=== PATIENT | male | born 1950 | race Caucasian/White ===

== ENCOUNTER 2023-12-15 11:41 | Outpatient (REF) | payer MEDICARE, BC, SELFPAY ==
--- NOTE | ~2023-12-15 | XR_ITS ---
EXAMINATION: XR KNEE, LEFT CLINICAL INFORMATION: Pain in the left knee. COMPARISON: None available. TECHNIQUE: Three views of the left knee. FINDINGS: Moderate joint effusion. Mild narrowing of the medial compartment. Mild medial and lateral chondrocalcinosis. Tiny tricompartmental osteophytes. Small calcification in the soft tissues medial to the medial femoral compartment. XR/XR knee LT 3V IMPRESSION: Moderate joint effusion. Mild degenerative changes.
== END 2023-12-15 11:42 | disposition home or self-care (01) ==
LOC: HO.HOSX 11:41
PROVIDERS: PCP Internal Medicine; Visit Provider Orthopaedic Surgery
DX: M25.462 Effusion, left knee (principal); M23.8X2 Other internal derangements of left knee
CPT/HCPCS: 73562; 99212

== ENCOUNTER 2023-12-15 11:41 | Outpatient (AMB) | payer MEDICARE, SELFPAY ==
--- NOTE | 2023-12-15 12:06 | MHC.OFFVIS ---
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 The patient did undergo left knee arthroscopic surgery approximately 2 years ago. He got fairly good relief from that surgery initially. The patient states that aggravated his knee last month while walking a lot at [employer] in [place], [place]. The patient has had cortisone injections in the past which gave him minimal relief. He has also tried Tylenol and ibuprofen which gave him only mild relief. He would like to hold off on further surgery if at all possible. He has done physical therapy exercises which aggravated his pain. Allergies No Known Allergies Allergy (Verified 12/15/23 12:15) Medication List - Last Reconciled 12/15/23 by Alonso Demarco MD lisinopril-hydrochlorothiazide 10-12.5 mg 1 tab PO DAILY metformin 1,000 mg PO BID PFSH Surgical History (Updated 12/15/23 @ 12:16 by Shea Cleaning CMA) History of back surgery Hx of left knee surgery Social History (Updated 12/15/23 @ 12:17 by Shea Cleaning CMA) Patient Tobacco Use Status: Never used Tobacco Current occupational status: retired Current occupation: Right hand dominant Physical Exam Const Other: Well-nourished well-developed very friendly male awake alert and oriented x3 in no acute distress Extrem Other: Bilateral lower extremity examination shows good capillary refill, no skin lesions noted, normal sensation light touch Left knee examination shows a minimal effusion, mild crepitus with range of motion, pain with range of motion, no instability Results Reviewed Results Reviewed: Standing full weight-bearing X-rays of the patient's left knee show mild joint space narrowing, no acute bony abnormalities Assessment & Plan Assessment & Plan (1) Left knee pain: Code(s): M25.562 - Pain in left knee Category: Medical Plan Mr. Fine presents with left knee pain due to degenerative joint disease. I had a lengthy discussion with the patient regarding the treatment options. He wishes to hold off on surgery for as long as possible. I agree with this plan. The patient has not gotten good relief from cortisone injections in the past. Thus, I will see whether or not the patient's insurance company will cover a viscosupplementation injection. I will see the patient back once the injection is available. Feel free to call me at any time should questions regarding his orthopedic management arise. I spent 21 minutes in reviewing the patient's records and imaging studies, seeing the patient and documenting in the medical record. Orders: Orders XR knee LT 3V Today M25.562 - Pain in left knee Coding Level of Care Code Est Pt Level 3 (71104) Diagnoses Left knee pain M25.562
== END 2023-12-15 12:29 | disposition home or self-care (01) ==
PROVIDERS: PCP Internal Medicine; Visit Provider Orthopaedic Surgery
DX: M25.562 Pain in left knee (principal)
CPT/HCPCS: 99213

== ENCOUNTER 2023-12-25 08:25 | Outpatient (AMB) | payer MEDICARE, SELFPAY ==
--- NOTE | 2023-12-25 08:30 | MHC.OFFVIS ---
Intake Visit Reasons: INJ- Left knee Durolane gel injection Intake Note: Karlos is a 73 year old male who presents for his Left knee Durolane gel injection. The patient describes his left knee pain as sharp in nature. He has tried Tylenol and ibuprofen which gave him only mild relief. He has had cortisone injections in the past which gave him no relief. He wishes to hold off on surgery for as long as possible. Allergies No Known Allergies Allergy (Verified 12/25/23 08:36) Medication List - Last Reconciled 12/25/23 by Alonso Demarco MD lisinopril-hydrochlorothiazide 10-12.5 mg 1 tab PO DAILY metformin 1,000 mg PO BID PFS Surgical History History of back surgery Hx of left knee surgery Social History Patient Tobacco Use Status: Never used Tobacco Current occupational status: retired Current occupation: Right hand dominant Physical Exam Const Other: Well-nourished well-developed very friendly male awake alert and oriented x3 in no acute distress Extrem Other: Bilateral lower extremity examination shows good capillary refill, no skin lesions noted, normal sensation light touch Left knee examination shows a minimal effusion, palpable crepitus with range of motion, pain with range of motion, no instability Results Reviewed Results Reviewed: X-rays of the patient's left knee show joint space narrowing, subchondral sclerosis, no acute Assessment & Plan Assessment & Plan (1) Arthritis of left knee: Code(s): M17.12 - Unilateral primary osteoarthritis, left knee Category: Medical Plan Mr. Fine presents with left knee pain due to degenerative joint disease. I had a lengthy discussion with the patient regarding the treatment options. He wishes to hold off on surgery for as long as possible. I agree with this plan. The risks and benefits of a left knee Durolane viscosupplementation injection were discussed at length with the patient. The patient wished to proceed. He tolerated the injection well. He will continue with his home exercise program. He will follow up with me on as-needed basis should his symptoms not plateau at an unacceptable level over the next few months. Feel free to call me at any time should questions regarding his orthopedic management arise. I spent 21 minutes in reviewing the patient's records and imaging studies, seeing the patient and documenting in the medical record. Orders: Orders AMB Joint Injection/Aspiration Today M17.12 - Unilateral primary osteoarthritis, left knee Coding Level of Care Code Est Pt Level 3 (37841) Diagnoses Arthritis of left knee M17.12
== END 2023-12-25 08:45 | disposition home or self-care (01) ==
PROVIDERS: PCP Internal Medicine; Visit Provider Orthopaedic Surgery
DX: M17.12 Unilateral primary osteoarthritis, left knee (principal)
CPT/HCPCS: 20610; 99213

== ENCOUNTER → 2023-12-25 08:25 | Outpatient (BNVA) | payer MEDICARE, SELFPAY | PROVIDERS: PCP Internal Medicine; Visit Provider Orthopaedic Surgery | DX: M17.12 Unilateral primary osteoarthritis, left knee (principal) | CPT/HCPCS: 99212 ==

== ENCOUNTER 2024-03-25 08:35 | Outpatient (AMB) | payer MEDICARE, SELFPAY ==
--- NOTE | 2024-03-25 08:37 | MHC.OFFVIS ---
Vital Signs 03/25/24 08:44 Height 5 ft 9 in Weight 170 lb BMI 25.1 Intake Visit Reasons: Left knee pain Intake Note: Karlos is a 73 year old male who presents with complaints of left knee pain. The patient did have a Durolane viscosupplementation injection given to his left knee earlier this year. He got fairly good relief from that injection. He has had cortisone injections in the past which gave him minimal relief. He would like to hold off on total knee replacement surgery for as long as possible. His pain has gotten somewhat worse recently. He has done physical therapy exercises which aggravated his pain. He has tried Tylenol and anti-inflammatory medicines which gave minimal relief. Allergies No Known Allergies Allergy (Verified 03/25/24 08:46) Medication List - Last Reconciled 03/25/24 by Alonso Demarco MD lisinopril-hydrochlorothiazide 10-12.5 mg 1 tab PO DAILY metformin 1,000 mg PO BID PFSH Surgical History History of back surgery Hx of left knee surgery Social History Patient Tobacco Use Status: Never used Tobacco Current occupational status: retired Current occupation: Right hand dominant Physical Exam Vital Signs: BMI result Body Mass Index 25.1 Const Other: Well-nourished well-developed very friendly male awake alert and oriented x3 in no acute distress Extrem Other: Bilateral lower extremity examination shows good capillary refill, no skin lesions noted, normal sensation light touch Left knee examination shows a minimal effusion, palpable crepitus with range of motion, pain with range of motion, no instability Results Reviewed Results Reviewed: X-rays of the patient's left knee taken previously show joint space narrowing, subchondral sclerosis, no acute bony abnormalities Assessment & Plan Assessment & Plan (1) Left knee pain: Code(s): M25.562 - Pain in left knee Category: Medical (2) Osteoarthritis of left knee: Code(s): M17.12 - Unilateral primary osteoarthritis, left knee Category: Medical Plan Mr. Fine presents with left knee pain due to osteoarthritis. I had a lengthy discussion with the patient regarding the treatment options. He wishes to hold off on surgery for as long as possible. I agree with this plan. He has not gotten good relief from cortisone injections in the past. He has gotten good relief from Durolane viscosupplementation injections. Thus, I will see whether or not the patient's insurance company will cover a another Durolane viscosupplementation injection. I will see him back once the injection is available. Feel free to call me at any time should questions regarding his orthopedic management arise. I spent 21 minutes in reviewing the patient's records and imaging studies, seeing the patient and documenting in the medical record. Coding Level of Care Code Est Pt Level 3 (53126) Diagnoses Left knee pain M25.562 Osteoarthritis of left knee M17.12
[2024-03-25 08:44] VITALS: BMI 25.1
== END 2024-03-25 09:08 | disposition home or self-care (01) ==
PROVIDERS: PCP Internal Medicine; Visit Provider Orthopaedic Surgery
DX: M25.562 Pain in left knee (principal); M17.12 Unilateral primary osteoarthritis, left knee
CPT/HCPCS: 99213

== ENCOUNTER → 2024-03-25 08:35 | Outpatient (BNVA) | payer MEDICARE, SELFPAY | PROVIDERS: PCP Internal Medicine; Visit Provider Orthopaedic Surgery | DX: M17.12 Unilateral primary osteoarthritis, left knee (principal) | CPT/HCPCS: 99212 ==

== ENCOUNTER 2024-06-29 08:23 | Outpatient (AMB) | payer MEDICARE, SELFPAY ==
--- NOTE | 2024-06-29 08:29 | MHC.OFFVIS ---
Intake Visit Reasons: Left Knee Durolane Injection Intake Note: Karlos is a 73 year old male who presents with complaints of progressively worsening left knee pain. The patient describes his pain as sharp in nature. He has had cortisone injections in the past which gave him minimal relief. Has also had viscosupplementation injections which gave him fairly good relief. He wishes to hold off on surgery if at all possible. Allergies No Known Allergies Allergy (Verified 06/29/24 08:33) Medication List - Last Reconciled 06/29/24 by Alonso Demarco MD lisinopril-hydrochlorothiazide 10-12.5 mg 1 tab PO DAILY metformin 1,000 mg PO BID PFSH Surgical History History of back surgery Hx of left knee surgery Social History Patient Tobacco Use Status: Never used Tobacco Current occupational status: retired Current occupation: Right hand dominant Physical Exam Const Other: Well-nourished well-developed very friendly male awake alert and oriented x3 in no acute distress Extrem Other: Bilateral lower extremity examination shows good capillary refill, no skin lesions noted, normal sensation light touch Left knee examination shows a minimal effusion, palpable crepitus with range of motion, pain with range of motion, no instability Office Procedures AMB Joint Injection/Aspiration Joint Injection/Aspiration Primary Site: left knee Prep: site was prepped using aseptic technique Injected: 60 mg of (Durolane viscosupplementation) and 1% plain lidocaine Procedure: The patient tolerated the procedure well Coding 39165 - Large joint Procedure code (CPT) selection complete Results Reviewed Results Reviewed: X-rays of the patient's left knee taken previously show joint space narrowing, subchondral sclerosis, no acute bony abnormalities Assessment & Plan Assessment & Plan (1) Osteoarthritis of left knee: Code(s): M17.12 - Unilateral primary osteoarthritis, left knee Category: Medical Plan Mr. Fine presents with left knee pain due to osteoarthritis. I had a lengthy discussion with the patient regarding the treatment options. The risks and benefits of a Durolane viscosupplementation injection were discussed at length with the patient. The patient wished to proceed. He tolerated the injection well. He will continue with his home exercise program. He will contact me prior to his follow-up appointment in 3 months should any questions or concerns arise. Feel free to call me at any time should questions regarding his orthopedic management arise. I spent 22 minutes in reviewing the patient's records and imaging studies, seeing the patient and documenting in the medical record. Orders: Orders AMB Joint Injection/Aspiration 06/29/24 M17.12 - Unilateral primary osteoarthritis, left knee Coding Level of Care Code Est Pt Level 3 (87282) Complex EM visit Add On G2211 Diagnoses Osteoarthritis of left knee M17.12 CPT Codes Coding - 01659 Large joint: 07478 - Large joint ([id number])
== END 2024-06-29 08:56 | disposition home or self-care (01) ==
PROVIDERS: PCP Internal Medicine; Visit Provider Orthopaedic Surgery
DX: M17.12 Unilateral primary osteoarthritis, left knee (principal)
CPT/HCPCS: 20610; 99213

== ENCOUNTER → 2024-06-29 08:23 | Outpatient (BNVA) | payer MEDICARE, SELFPAY | PROVIDERS: PCP Internal Medicine; Visit Provider Orthopaedic Surgery | DX: M17.12 Unilateral primary osteoarthritis, left knee (principal) | CPT/HCPCS: 20610; 99212; J2003; J7318 ==

== ENCOUNTER 2024-09-30 08:32 | Outpatient (AMB) | payer MEDICARE, SELFPAY ==
[2024-09-30 08:37] VITALS: BMI 25.1
--- NOTE | 2024-09-30 08:37 | A.OFFVIS_ITS ---
Vital Signs 09/30/24 08:37 Height 5 ft 9 in Weight 170 lb BMI 25.1 Intake Visit Reasons: Left knee pain Intake Note: Karlos is a 73 year old male who presents with complaints of left knee pain. The patient describes his pain as sharp in nature. He has had cortisone injections in the past which gave him minimal relief. He has also had Durolane viscosupplementation injections which gave him good relief. He wishes to hold off on surgery for as long as possible. He has tried Tylenol and anti- inflammatory medicines which gave him minimal relief. He has also done physical therapy exercises which aggravated his pain. Allergies No Known Allergies Allergy (Verified 09/30/24 08:37) Medication List - Last Reconciled 09/30/24 by Alonso Demarco MD lisinopril-hydrochlorothiazide 10-12.5 mg 1 tab PO DAILY metformin 1,000 mg PO BID PFSH Surgical History History of back surgery Hx of left knee surgery Social History Patient Tobacco Use Status: Never used Tobacco Current occupational status: retired Current occupation: Right hand dominant Physical Exam Vital Signs: BMI result Body Mass Index 25.1 Const Other: Well-nourished well-developed very friendly male awake alert and oriented x3 in no acute distress Extrem Other: Bilateral lower extremity examination shows good capillary refill, no skin lesions noted, normal sensation light touch Left knee examination shows a minimal effusion, palpable crepitus with range of motion, pain with range of motion, no instability Results Reviewed Results Reviewed: X-rays of the patient's left knee show joint space narrowing, subchondral sclerosis, no acute bony abnormalities Assessment & Plan Assessment & Plan (1) Left knee pain: Code(s): M25.562 - Pain in left knee Category: Medical (2) Osteoarthritis of left knee: Code(s): M17.12 - Unilateral primary osteoarthritis, left knee Category: Medical Plan Mr. Fine presents with left knee pain due to osteoarthritis. I had a lengthy discussion with the patient regarding the treatment options. He wishes to hold off on surgery for as long as possible. I agree with this plan. I will see whether or not the patient's insurance company will cover another Durolane viscosupplementation injection. I will see him back once the injection is available. Feel free to call me at any time should questions regarding his orthopedic management arise. I spent 20 minutes in reviewing the patient's records and imaging studies, seeing the patient and documenting in the medical record. Coding Level of Care Code Est Pt Level 3 (56771) Complex EM visit Add On G2211 Diagnoses Left knee pain M25.562 Osteoarthritis of left knee M17.12
--- OUTSIDE RECORDS SUMMARY | 2024-09-30 08:59 | XMS_ITS | Clinical Summary ---
Author Organization [facility] Address [address] [place] [address] Care Team Providers Care Fitness And Wellness Manager Name Role Phone Sathish Perez MD Primary Care Provider Unavail able Allergies No known active allergies Medications Medication Sig Dispensed Refills Start Date End Date Status aspirin 81 MG EC tablet Take 81 mg by mouth. 0 Active Cholecalciferol 50 MCG (1999 UT) CAPS Take 2,000 Units by mouth. 0 Active docusate sodium (Colace) 100 MG capsule Take 100 mg by mouth. 0 09/26/2017 Active lisinopril (PRINIVIL,ZESTRIL) tablet 10 mg Take 10 mg by mouth. 0 02/26/2017 Active lisinopril-hydroCHLO ROthiazide (PRINZIDE,ZESTORETIC ) tablet 10-12.5 mg Take 1 tablet by mouth daily. 0 11/13/2021 Active LORazepam (ATIVAN) 0.5 MG tablet Take 0.5 mg by mouth 3 (three) times a day as needed. for anxiety 0 09/20/2021 Active LORazepam (ATIVAN) 1 MG tablet Take 1 mg by mouth every 6 (six) hours as needed. 0 Active naproxen (NAPROSYN) 500 MG tablet TAKE 1 TABLET BY MOUTH TWICE A DAY WITH FOOD 0 11/19/2021 Active methocarbamol (ROBAXIN) 750 MG tablet TAKE 1 TABLET BY ORAL ROUTE 2 TIMES EVERY DAY NEEDED 0 11/19/2021 Active metFORMIN (GLUCOPHAGE) tablet 500 mg Take 500 mg by mouth. 0 09/15/2019 Active oxyCODONE (ROXICODONE) 5 MG immediate release tablet 1-2 tabs p.o. every 4 to 6 hours as needed for pain. May fill for lesser quantity 16 tablet 0 12/11/2021 Active Active Problems Problem Noted Date Diagnosed Date Localized swelling of left lower extremity 01/23 Arthritis of knee, left 11/28/2021 Sprain of lateral collateral ligament of left kn ee 11/28/2021 Family History Medical History Relation Name Comments Heart disease Mother Relation Name Status Comments Mother Social History Tobacco Use Types Packs/Day Years Used Date Smoking Tobacco: Never Smokeless Tobacco: Never Alcohol Use Standard Drinks/Week Comments Not Currently 0 (1 standard drink = 0.6 oz pur e alcohol) Sex and Gender Information Value Date Recorded Sex Assigned at Not on file Gender Identity Not on file Sexual Orientation Not on file Job Start Date Occupation Industry Not on file Not on file Not on file Last Filed Vital Signs Vital Sign Reading Time Taken Comments Blood Pressure - - Pulse - - Temperature - - Respiratory Rate - - Oxygen Saturation - - Inhaled Oxygen Concentration - - Weight 79.4 kg (175 lb) 01/02/2022 2:34 PM EDT Height 175.3 cm (5' 9 ) 01/02/2022 2:34 PM EDT Body Mass Index 25.84 01/02/2022 2:34 PM EDT Plan of Treatment Health Maintenance Due Date Last Done Comments Hepatitis C Screening 1950 COVID-19 Vaccine (#1) 04/08/1951 Depression Screening 1963 Preventative Health Evaluation 10/06/1969 DTap / Tdap / Td (1 - Tdap) 10/06/1970 Colon Cancer Screening (Colonoscopy) 10/06/1996 Shingrix-Zoster Vaccine (1 of 2) 10/06/2001 Fall Risk Assessment 10/06/2016 Pneumococcal Vaccine (1 of 1 - PCV) 10/06/2016 Influenza Vaccine (#1) 2024 RSV Adult > 60+ Yrs or Pregn ant (1 - 1-dose 75+ series) 10/06/2026 Hepatitis B Vaccines Aged Out No long er eligible based on patient's age to complete this topic RSV Ped < 20 months Aged Out No longe r eligible based on patient's age to complete this topic Care Teams Fitness And Wellness Manager Relationship Specialty Start Date End Date Sathish Perez MD PCP - General Internal Medicine 11/26/21
--- OUTSIDE RECORDS SUMMARY | 2024-09-30 08:59 | XMS_ITS | Continuity of Care Document ---
Author Organization [facility] Address [address] [place] [address]- Care Team Providers Care Resin Coater Name Role Phone Sathish Perez MD Primary Care Physician [phone] [facility] [place] - 09[place]23/[place] [facility] Care [address] [place] [id number] Encounter Type: Triage Allergies, Adverse Reactions, Alerts No Known Allergies Medications Ativan 0.5 mg oral tablet 1 tablet = 0.5 mg, By Mouth, 3 times a day, PRN Anxiety, # 50 tablet, 0 Refills, Maintenance, 09/30/23 9:54:00 AM EST, Tablet, [id number], 174, cm, 09/30/23 8:58:00 EST, Height, 77.3, kg, 09/30/23 8:58:00 EST, Dry Weight Start Date: 09/30/23 Status: Ordered Quantity: 50.0 Unit: tablet Repeat number: 1 Colace sodium 100 mg oral capsule 100 mg, 1, capsule, By Mouth, 2 times a day, # 60 capsule, Refills 0, Tot. Refills 0, Maintenance, 09/26/17 9:24:53 AM EST, Print Requisition Start Date: 09/26/17 Status: Ordered Quantity: 60.0 Unit: capsule Repeat number: 1 lisinopril 10 mg oral tablet 10 mg, 1, tablet, By Mouth, Daily, # 30 tablet, Refills 0, Maintenance, 02/26/17 9:47:54 AM EDT Start Date: 02/26/17 Status: Ordered Quantity: 30.0 Unit: tablet Repeat number: 1 metFORMIN 500 mg oral tablet 1 tablet = 500 mg, By Mouth, 2 times a day, 0 Refills, Maintenance, 09/15/19 8:52:00 AM EST Start Date: 09/15/19 Status: Ordered Repeat number: 1 Vitamin B12 1000 mcg oral tablet 1 tablet = 1,000 mcg, By Mouth, Daily, # 90 tablet, 0 Refills, Maintenance, 08/24/24 10:19:00 AM EST, Tablet, Partial fill upon patient request if the prescription is for a schedule II opioid drug. 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 1Bilateral Social History Social History Type Response Smoking Status Never smoker entered on: 01/24/15 Sex Sex Representation Male (finding) Patient Care team information Care Team Personnel Name: Sathish Perez MD Position: [facility] Physician - Primary Care Member Role: PCP Address: [address] [place] [address] Telecom: Name: Charlene Kohli RN Position: S RN Member Role: Primary Care Nurse Name: Rosetta Ventura MA Position: [facility] Onco RN Member Role: Primary Care Nurse Care Team Related Persons Name: ARVIN VARMA Insurance Providers Guarantor name: BERNY VARMA Health Plan Information #: 1 Payer: MEDICARE PART B OUTPT Member Number: NA Policy Number: NA Group Number: NA Health Plan Information #: 2 Payer: MEDEX Member Number: NA Policy Number: NA Group Number: NA
--- OUTSIDE RECORDS SUMMARY | 2024-09-30 08:59 | XMS_ITS | Continuity of Care Document ---
Author Organization [facility] Address [address] [place] [address]- Care Team Providers Care Space Physicist Name Role Phone Sathish Perez MD Primary Care Physician [place] [facility] [place] [facility] Care [address], [place] [address] Attending Physician: Isael Gonzales Admitting Physician: Isael Gonzales Referring Physician: Admtr [id number] Encounter Type: Triage Allergies, Adverse Reactions, Alerts [...] on: 01/24/15 Sex Sex Representation Male (finding) Radiology * Event Display: Non Radiology Results Authored Date: Patient Care team information Care Team Personnel Name: Sathish Perez MD Position: [facility] Physician - Primary Care Member Role: PCP Address: [address] [place] [address] Telecom: Name: Charlene Kohli RN Position: [facility] RN Member Role: Primary Care Nurse Name: Rosetta Ventura MA Position: [facility] Onco RN Member Role: Primary Care Nurse Care Team Related Persons Name: ARVIN VARMA Insurance Providers Guarantor name: BERNY VARMA Health Plan Information #: 1 Payer: MEDICARE PART B OUTPT Member Number: NA Policy Number: NA Group Number: NA Health Plan Information #: 2 Payer: MEDEX Member Number: NA Policy Number: NA Group Number: NA
== END 2024-09-30 09:05 | disposition home or self-care (01) ==
PROVIDERS: PCP Internal Medicine; Visit Provider Orthopaedic Surgery
DX: M17.12 Unilateral primary osteoarthritis, left knee (principal)
CPT/HCPCS: 99213; G2211

== ENCOUNTER → 2024-09-30 08:32 | Outpatient (BNVA) | payer MEDICARE, SELFPAY | PROVIDERS: PCP Internal Medicine; Visit Provider Orthopaedic Surgery | DX: M25.562 Pain in left knee (principal); M17.12 Unilateral primary osteoarthritis, left knee | CPT/HCPCS: 99212 ==

== ENCOUNTER 2025-03-01 09:25 | Outpatient (AMB) | payer MEDICARE, SELFPAY ==
--- NOTE | 2025-03-01 09:40 | A.OFFVIS_ITS ---
Intake Visit Reasons: Inj-Lt knee Durolane Intake Note: Karlos is a 74 year old male who presents today for a left knee Durolane gel injection. At today's visit he stated that the last injection did give some relief, no numbness or tingling to report. Patient added that mild discomfort when waking up but the pain subsides. He continues to walk for exercise. He denies any locking or giving way. He wishes to hold off on surgery if at all possible. Allergies No Known Allergies Allergy (Verified 03/01/25 09:42) Medication List - Last Reconciled 03/01/25 by Alonso Demarco MD lisinopril-hydrochlorothiazide 10-12.5 mg 1 tab PO DAILY metformin 1,000 mg PO BID PFSH Surgical History History of back surgery Hx of left knee surgery Social History Patient Tobacco Use Status: Never used Tobacco Current occupational status: retired Current occupation: Right hand dominant Physical Exam Const Other: Well-nourished well-developed very friendly male awake alert and oriented x3 in no acute distress Extrem Other: Bilateral lower extremity examination shows good capillary refill, no skin lesions noted, normal sensation light touch Left knee examination shows a minimal effusion, palpable crepitus with range of motion, pain with range of motion, no instability Office Procedures AMB Joint Injection/Aspiration Joint Injection/Aspiration Primary Site: left knee Prep: site was prepped using aseptic technique Injected: 60 mg of (Durolane viscosupplementation) and 1% plain lidocaine Procedure: The patient tolerated the procedure well Coding 11828 - Large joint Procedure code (CPT) selection complete Results Reviewed Results Reviewed: X-rays of the patient's left knee taken previously show joint space narrowing, subchondral sclerosis, no acute bony abnormalities Assessment & Plan Assessment & Plan (1) Osteoarthritis of left knee: Code(s): M17.12 - Unilateral primary osteoarthritis, left knee Category: Medical Plan Mr. Fine presents with left knee pain due to osteoarthritis. The risks and benefits of a Durolane viscosupplementation injection were discussed at length with the patient. The patient wishes to proceed. He tolerated the injection well. He will continue with his exercise program. He will contact me prior to his follow-up appointment in 6 months should any questions or concerns arise. Feel free to call me at any time should questions regarding his orthopedic management arise. I spent 20 minutes in reviewing the patient's records and imaging studies, seeing the patient and documenting in the medical record. Orders: Orders 2 AMB Joint Injection/Aspiration Today M17.12 - Unilateral primary osteoarthritis, left knee Coding Level of Care Code Est Pt Level 3 (14877) Complex EM visit Add On G2211 Diagnoses Osteoarthritis of left knee M17.12 CPT Codes Coding - 40303 Large joint: 09785 - Large joint ([id number])
--- OUTSIDE RECORDS SUMMARY | 2025-03-01 09:54 | XMS_ITS ---
Author Name [facility] Organization Unknown Encounters Encounter Type Encounter Reason Primary Diagnosis Location Date Ambulatory [facility] [place] 12/11/2023 Ambulatory [facility] [place] 12/11/2023 Ambulatory [facility] [place] 12/11/2023
--- OUTSIDE RECORDS SUMMARY | 2025-03-01 09:54 | XMS_ITS | Clinical Summary ---
Author Organization [facility] Address [address] [place] [address] Care Team Providers Care Page Technician Name Role Phone Sathish Perez MD Primary [...] 1 - PCV) 10/06/2016 Influenza Vaccine (#1) 2025 RSV Adult > 60+ Yrs or Pregn ant (1 - 1-dose 75+ series) 10/06/2026 Hepatitis B Vaccines Aged Out No long er eligible based on patient's age to complete this topic RSV Ped < 20 months Aged Out No longe r eligible based on patient's age to complete this topic Care Teams Page Technician Relationship Specialty Start Date End Date Sathish Perez MD PCP - General Internal Medicine 11/26/21
--- OUTSIDE RECORDS SUMMARY | 2025-03-01 09:54 | XMS_ITS | Clinical Summary ---
Author Organization [facility] Address [address] [place] [address] Phone Care Team Providers Care Nanotechnology Technician Name Role Phone Sathish Perez MD Primary Care Provider [phone] Self-Referred, Patient Unavailable Unavailab le Allergies No known active allergies Medications aspirin 81 MG EC tablet Take 81 mg by mouth daily. Active cholecalciferol (VITAMIN D3) 2,000 unit capsule Take 2,000 Units by mouth daily. Active lisinopril (PRINIVIL,ZESTRI L) 10 MG tablet Take 10 mg by mouth daily. Active LORazepam (ATIVAN) 1 MG tablet Take 1 mg by mouth every 6 (six) hours as needed for anxiety. 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 Not on marc e 11/29/2022 Are you concerned about learning? Not on file 11/29/2022 No 11/29/2022 No 11/29/2022 Digital Access Answer Date Recorded No 12/28/2022 No 12/28/2022 No 12/28/2022 Reliable internet access at home? Not on file 12/28/2022 Device with a working camera? Not on file Sex and Gender Information Value Date Recorded Sex Assigned at Not on file Legal Sex Male 2:38 PM EST Gender Identity Not on file Sexual Orientation Not on file Last Filed Vital Signs Vital Sign Reading Time Taken Comments Blood Pressure 147/80 10/15/2017 3:58 PM EDT Pulse 88 10/15/2017 3:58 PM EDT Temperature 36.8 C (98.2 F) 10/15/2017 3:58 PM EDT Respiratory Rate 18 10/15/2017 3:58 PM EDT Oxygen Saturation - - Inhaled Oxygen Concentration - - Weight 83.6 kg (184 lb 4.9 oz) 10/15/2017 3:58 P M EDT [facility] Height 174.4 cm (5' 8.66 ) 10/15/2017 3:58 PM ED T [facility] Body Mass Index 27.49 10/15/2017 3:58 PM EDT Plan of Treatment Health Maintenance Due Date Last Done Comments Adult Td,Tdap Booster 1950 CREATININE LEVEL 1950 LIPID PANEL 1951 POTASSIUM LEVEL 1951 DEPRESSION SCREENING 1963 HEPATITIS C SCREENING 10/06/1969 SMOKING STATUS SCREENING (On ce After 26 Yrs) 10/06/1977 COLOGUARD 10/06/1996 COLONOSCOPY 10/06/1996 COLORECTAL CANCER SCREENING 10/06/1996 FIT TEST 10/06/1996 FOBT 10/06/1996 SIGMOIDOSCOPY 10/06/1996 VIRTUAL COLONOSCOPY 10/06/1996 PNEUMOCOCCAL VACCINES (50+ years) (2 of 2 - PPSV23) 10/01/2018 08/06/2018 COVID-19 VACCINE (2 - 2023-2 5 season) 2024 10/17/2020 RSV VACCINE (1 - 1-dose 75+ series) 10/06/2026 ZOSTER VACCINES Completed 08/22/2020, 05/25/2020 HEPATITIS A VACCINES Aged Out No long er eligible based on patient's age to complete this topic HIB VACCINES Aged Out No longer eligi ble based on patient's age to complete this topic MENINGOCOCCAL VACCINES (ACWY) Aged Out No longer eligible based on patient's age to complete this topic MENINGOCOCCAL VACCINES (B) Aged Out N o longer eligible based on patient's age to complete this topic Medical Devices Not on file Insurance MEDICARE PART A & B [employer] MEDEX SUPPLEMENT MEDICARE PART A & B [employer] MEDEX SUPPLEMENT MEDICARE PART A & B [employer] MEDEX SUPPLEMENT MEDICARE PART A & B [employer] MEDEX SUPPLEMENT MEDICARE PART A & B [employer] MEDEX SUPPLEMENT MEDICARE PART A & B [employer] MEDEX SUPPLEMENT MEDICARE PART A & B [employer] MEDEX SUPPLEMENT MEDICARE PART A & B [employer] MEDEX SUPPLEMENT MEDICARE PART A & B [employer] MEDEX SUPPLEMENT Care Teams Nanotechnology Technician Relationship Specialty Start Date End Date Sathish Perez MD PCP - General Internal Medicine 10/09/17 Self-Referred, Patient 10/09/17 Additional Source Comments The information contained in this document represents components of the legal health record. It is not the complete legal health record.[facility]
== END 2025-03-01 10:10 | disposition home or self-care (01) ==
LOC: HO.HOS 09:26
PROVIDERS: PCP Internal Medicine; Visit Provider Orthopaedic Surgery
DX: M17.12 Unilateral primary osteoarthritis, left knee (principal)
CPT/HCPCS: 20610; 99213

== ENCOUNTER → 2025-03-01 09:25 | Outpatient (BNVA) | payer MEDICARE, SELFPAY | PROVIDERS: PCP Internal Medicine; Visit Provider Orthopaedic Surgery | DX: M25.562 Pain in left knee (principal); M17.12 Unilateral primary osteoarthritis, left knee; Z79.899 Other long term (current) drug therapy | CPT/HCPCS: 20610; 99212; J2003; J7318 ==